=== PATIENT | female | born 1985 | race Two or more races ===

== ENCOUNTER 2016-06-21 11:03 | Emergency (ER) | payer OTHER ==
[~2016-06-21] VITALS: Ht 157.5 cm; Wt 65.0 kg
[2016-06-21 11:05] VITALS: Ht 157.5 cm; Wt 65.0 kg
[2016-06-21] MEDS ORDERED: AMO500 PO (13:24)
[2016-06-21] MEDS ORDERED: IBUP400T22 PO (13:24)
[2016-06-21] MEDS ORDERED: BEN25 PO (13:24)
--- NOTE | 2016-06-24 10:49 | ERD ---
ER Documentation Chief Complaint Date/Time DATE: 06/24/16 TIME: 10:47 Chief Complaint PT with fever and throat pain X 3 days. HPI This is a 31 year old female who presents to ER for sore throat and fever x 3 days. Denies cough, wheezing, shortness of breath or difficulty breathing. Tactile fevers at home. No difficulty swallowing or drooling. Has been taking DayQuil without relief of symptoms. ROS All systems reviewed and are negative except as per history of present illness. Medications Home Meds Active Scripts Diphenhydramine Hcl* (Benadryl*) 25 Mg Cap, 25 MG PO Q6, #10 CAP Prov:SHEFALI LAWRENCE NP 06/21/16 Ibuprofen* (Motrin*) 400 Mg Tab, 400 MG PO Q6, #15 TAB Prov:SHEFALI LAWRENCE NP 06/21/16 Amoxicillin* (Amoxicillin*) 500 Mg Cap, 500 MG PO BID for 10 Days, CAP Prov:SHEFALI LAWRENCE NP 06/21/16 Allergies Allergies: Coded Allergies: No Known Allergy (Unverified , 07/02/15) PMhx/Soc Medical and Surgical Hx: pt denies Medical Hx, pt denies Surgical Hx Hx Alcohol Use: No Hx Substance Use: No Hx Tobacco Use: No Physical Exam Vitals Vital Signs Date Time Temp Pulse Resp B/P Pulse Ox O2 Delivery O2 Flow Rate FiO2 06/21/16 11:05 98.3 96 20 110/73 99 Physical Exam Const: no acute distress Head: Atraumatic Eyes: Normal Conjunctiva ENT: Normal External Ears, Nose and Mouth. erythema and exudate to posterior pharynx. no peritonsillar abscess. TMs normal bilaterally. Neck: Full range of motion..~ No meningismus. Resp: Clear to auscultation bilaterally Cardio: Regular rate and rhythm, no murmurs Abd: Soft, non tender, non distended. Normal bowel sounds Skin: No petechiae or rashes Back: No midline or flank tenderness Ext: No cyanosis, or edema Neur: Awake and alert Psych: Normal Mood and Affect Procedures/MDM MDM: 31 year old female presents ot ER with sore throat and tactile fevers x 3 days. Erythema and exudate to posterior pharynx on physical exam. Patient is talking in complete sentences. No muffled voice, difficulty swallowing or drooling. No cough or wheezing. Vitals are stable. Patient likely has viral pharyngitis vs. strep pharyngitis based on physical exam findings. Differential diagnosis includes but not limited to strep pharyngitis, viral pharyngitis, tonsillitis, mononucleosis, epiglottis, peritonsillar abscess, retropharyngeal abscess, URI, influenza, otitis media or otitis externa. Patient is appropriate for outpatient management and will be discharged with prescription for amoxicillin, Benadryl and ibuprofen. Instructed patient to follow up with PCP in the next 2-3 days for reassessment. Return to ED for any new or worsening symptoms. Patient verbalizes understanding. All questions answered at discharge. Departure Diagnosis: Primary Impression: Pharyngitis Pharyngitis/tonsillitis etiology: unspecified etiology Qualified Code: J02.9 - Pharyngitis, unspecified etiology Condition: Stable Patient Instructions: Pharyngitis, Strep (Presumed) Referrals: [facility] YOU HAVE RECEIVED A MEDICAL SCREENING EXAM AND THE RESULTS INDICATE THAT YOU DO NOT HAVE A CONDITION THAT REQUIRES URGENT TREATMENT IN THE EMERGENCY DEPARTMENT. FURTHER EVALUATION AND TREATMENT OF YOUR CONDITION CAN WAIT UNTIL YOU ARE SEEN IN YOUR DOCTORS OFFICE WITHIN THE NEXT 1-2 DAYS. IT IS YOUR RESPONSIBILITY TO MAKE AN APPOINTMENT FOR FOLOW-UP CARE. IF YOU HAVE A PRIMARY DOCTOR --you should call your primary doctor and schedule an appointment IF YOU DO NOT HAVE A PRIMARY DOCTOR YOU CAN CALL OUR PHYSICIAN REFERRAL HOTLINE AT IF YOU CAN NOT AFFORD TO SEE A PHYSICIAN YOU CAN CHOSE FROM THE FOLLOWING [facility] [address] [facility]. [facility] [address] [employer] [facility] [facility] [address] [facility] [facility] [address] [facility]. [facility] [address] [facility]. [facility]. [address] [facility]. [facility] YOU HAVE RECEIVED A MEDICAL SCREENING EXAM AND THE RESULTS INDICATE THAT YOU DO NOT HAVE A CONDITION THAT REQUIRES URGENT TREATMENT IN THE EMERGENCY DEPARTMENT. FURTHER EVALUATION AND TREATMENT OF YOUR CONDITION CAN WAIT UNTIL YOU ARE SEEN IN YOUR DOCTORS OFFICE WITHIN THE NEXT 1-2 DAYS. IT IS YOUR RESPONSIBILITY TO MAKE AN APPOINTMENT FOR FOLOW-UP CARE. IF YOU HAVE A PRIMARY DOCTOR --you should call your primary doctor and schedule and appointment IF YOU DO NOT HAVE A PRIMARY DOCTOR YOU CAN CALL OUR PHYSICIAN REFERRAL HOTLINE AT . IF YOU CAN NOT AFFORD TO SEE A PHYSICIAN YOU CAN CHOSE FROM THE FOLLOWING [facility] INSTITUTIONS: [facility] [address] [place] [address] [facility] [address] [place] [address] [facility] [address] [place] [address] Additional Instructions: Call your primary care doctor TOMORROW for an appointment during the next 2-3 days.See the doctor sooner or return here if your condition worsens before your appointment time. Return to ED for any high fever, chest pain, difficulty breathing, shortness breath, wheezing, vomiting, diarrhea, abdominal pain or any new or worsening symptoms. SHEFALI LAWRENCE NP June 24, 2016 10:49
== END 2016-06-21 13:30 | disposition home or self-care (01) ==
LOC: FTE 11:03
DX: J02.9 Acute pharyngitis, unspecified (principal)
CPT/HCPCS: 99283